=== PATIENT | female | born 1990 | race Hispanic/Latino ===

== ENCOUNTER 2023-01-19 03:10 | Day surgery (SDC) | payer BC, SELFPAY ==
[2023-01-18 08:39] VITALS: BMI 40.7
--- NOTE | 2023-01-18 08:44 | PC.NURSE ---
Report to the Outpatient Waiting Room, entrance under the green pavilion located off [facility], at time 1300 on date 01/19/23. Planned Procedure Time: 1500. Time changes happen often and if your time is changed the preop area will call you the afternoon before. - You and your visitor will be asked to self-screen and do not enter if you have any COVID symptoms. - A mask is optional within the hospital at this time. Patients may have clear liquids (water, carbonated beverages, clear teas, apple juice) until 3 hours prior to surgery with a maximum of 20 ounces. - No food from midnight until time of surgery Take the following medications with a SIP of water the morning of surgery: CIPRO, PAIN PILL IF NEEDED DO NOT STOP ANY OF YOUR OTHER PRESCRIPTION MEDICATIONS PRIOR TO SURGERY ?EXCEPT THE FOLLOWING Medications to discontinue per physician: VITAMINS/SUPPLEMENTS Date to take last dose: NONE UNTIL AFTER SURGERY Please no make-up, nail setswana, hairspray, perfume, deodorant, or body powder the day of surgery. No jewelry (including any body piercings) or valuables the day of surgery, leave them at home. Please take a shower or bath the night before, or the morning of, surgery with an antibacterial soap. Wear comfortable, loose fitting clothing. - Jewelry must be removed prior to entering the operating room. Rings and piercings that are not removed may be cut off. - The hospital will not accept responsibility for valuables. - Please leave all valuables, including medications, at home the day of surgery. If you are going home after surgery, a licensed coach tour driver must drive you home. - NO public transportation without another adult if you receive anesthesia. - We recommend that an adult stay with you for 24 hours following discharge. - We also recommend that you do not drive, make important decision, drink alcoholic beverages, or take any drugs that were not prescribed by your health care provider for at least 24 hours after your discharge time. Follow any additional instructions given to you from your surgeon. If you or anyone in your household have experienced Covid symptoms in the past week, please notify your surgeon or the nurse liaison at the phone number below for possible testing. Telephone instructions given to PT - STEFANIE JOE and asked if any additional questions and then verbalized understanding. Patient advised to call surgeon office or pre surgery nurse liaison [phone] if any additional questions.
[2023-01-19] VITALS (8 sets, daily range): BP systolic 97–152; BP diastolic 52–85; PULSE 66–109; RESP 11–20; TEMP 36.1–37.2; O2SAT 97–100; BMI 40.4
--- NOTE | ~2023-01-19 | XR_ITS ---
EXAMINATION: XR abdomen/kub 1V DATE: 01/19/2023 14:16 INDICATION: Kidney stone. TECHNIQUE: A supine view of the abdomen on 2 radiographs was obtained. COMPARISON: None. FINDINGS: There are no dilated loops of bowel. The kidneys are obscured by bowel. There is a 10 mm ca lcification in the area of proximal right ureter. There are multiple densities overlying left kidney measuring up to 4 mm. IMPRESSION: 1. 10 mm calcification in the area of proximal right ureter that may be a stone. 2. Multiple densities overlying left kidney measuring up to 4 mm that may be stones. Reviewed, dictated and finalized at location A. IMPRESSION: 1. 10 mm calcification in the area of proximal right ureter that may be a stone . 2. Multiple densities overlying left kidney measuring up to [address] ones.
--- NOTE | 2023-01-19 07:00 | WPDHPUPDATE1 ---
History and Physical Update Update Date/Time: 01/19/23 07:00 History and Physical has been reviewed, including an updated exam of the patient. There are NO changes in the patient's condition. Risks, benefits, and alternatives have been discussed and questions answered. Patient agrees to proceed with procedure.
[2023-01-19] MEDS: LACTATED RINGERS 1,000 ML 30 ML IV CONT (13:35)
[2023-01-19 13:45] LABS: Appearance Urine Clear (Clear); Bacteria Urine None Seen /hpf; Bilirubin Urine Negative (Negative); Color Urine Yellow (Yellow); Glucose Urine UA Negative (Negative); Ketones Urine 2+ mg/dL (Negative); Leukocyte Esterase Ur Negative LEU/UL (Negative); Nitrate Urine Negative (Negative); Non Pathogenic Casts 0-2; Protein Urine Negative (Negative); RBC Urine 0-2 /hpf (0-2); Specific Grav Ur 1.012 (1.001-1.035); Squamous Epithelial Cell Urine None seen /hpf (Few); WBC Urine 0-5 /hpf
[2023-01-19 14:11] LABS: Add Urine Microscopic? YES
[2023-01-19 14:18] LABS: INR 1.1; Prothrombin Time 14.4 Seconds (11.1-14.7)
[2023-01-19 14:19] LABS: Partial Thromboplastin Time 33.9 SECONDS (22.3-36.8)
--- NOTE | 2023-01-19 14:23 | WPDANESEPPF ---
Anes - Initial Pre Proc Eval Procedure: Operation Date: 01/19/23 15:00 Proposed Procedures p Right Ureteral Extracorporeal Shock Wave Lithotripsy - Deep Steward MD Date/Time: 01/19/23 14:23 Surgeon: Deep Steward MD Pre Op Diagnosis: right ureteral stone Patient Data Age: 32 Gender: F Height: 1.7 m Weight: 117.95 kg Allergies Allergy/AdvReac Type Severity Reaction Status Date / Time phenytoin [From Dilantin] AdvReac Unknown Seizure Verified 01/18/23 08:37 metformin AdvReac Diarrhea Verified 01/18/23 08:37 Home Medications Medication Instructions Recorded Confirmed Type ascorbic acid (vitamin C) 100 mg 100 mg PO DAILY 07/24/22 01/18/23 History tablet cholecalciferol (vitamin D3) 125 125 mcg PO DAILY #30 caps 07/24/22 01/18/23 Rx mcg (5,000 unit) capsule ergocalciferol (vitamin D2) 1,250 1,250 mcg PO WEEKLY 3 months #13 07/24/22 01/18/23 Rx mcg (50,000 unit) capsule caps spironolactone 50 mg tablet 50 mg PO DAILY #30 tabs 07/24/22 01/18/23 Rx ciprofloxacin HCl 500 mg tablet 500 mg PO Q12H #14 tabs 01/15/23 01/18/23 Rx (Cipro) hydrocodone 5 mg-acetaminophen 325 1 tablet PO Q6H PRN pain #20 tabs 01/15/23 01/18/23 Rx mg tablet ondansetron 4 mg disintegrating 4 mg PO Q8H PRN nausea and 01/15/23 01/18/23 Rx tablet vomiting #14 tabs tamsulosin 0.4 mg capsule (Flomax) 0.4 mg PO DAILY #10 caps 01/15/23 01/18/23 Rx Laboratory Tests 01/19/23 01/19/23 13:30 13:56 PT 14.4 Seconds (11.1-14.7) INR 1.1 APTT 33.9 SECONDS (22.3-36.8) Urine Color Yellow (Yellow) Urine Appearance Clear (Clear) Urine pH 6.0 (5.0-9.0) Ur Specific [place] 1.012 (1.001-1.035) Urine Protein Negative mg/dL (Negative) Urine Glucose (UA) Negative mg/dL (Negative) Urine Ketones 2+ H mg/dL (Negative) Ur Blood (Man) Non-hemolyzed trace (Negative) Urine Nitrate Negative (Negative) Urine Bilirubin Negative (Negative) Urine Urobilinogen 1.0 mg/dL (<2.0) Leukocyte Esterase Rfl Negative MATTHEW/UL (Negative) Urine RBC 0-2 /hpf (0-2) Urine WBC 0-5 /hpf Ur Squamous Epith Cells None seen /hpf (Few) Urine Bacteria None seen /hpf Urine Casts 0-2 Patient hx anesthesia problems: none Family hx anesthesia problems: none Results Review: All pre-operative results and documents have been reviewed as part of the pre-operative evaluation. [facility] Past Medical History Medical History Brain tumor (benign) Dairy product intolerance Insulin resistance Low HDL (under 40) Seizures teenager Transaminitis Vitamin D deficiency Surgical History Surgical History Hx of brain surgery Family History Family History Father Hypertension Anxiety Mother Thyroid disease Social History Social History Smoking status: Never smoker Alcohol intake: never Substance use: never Substance use type: does not use Lack of Transportation: No Lack of Food: Never True Current Housing: I Have Housing Concerned About Future Housing: No Difficulty Paying Gas/Electric Bills: No Difficulty Paying for Meds: No Currently Unemployed: No Difficulty w/ Childcare or Family Care: No Living arrangements: with family Occupation/Education: occupation Gender identity (if verbalized by the patient): Female Spiritual care concerns: No Anes - Eval Final PreProcedure Day of Procedure 01/19/23 14:23 Patient weight: morbidly obese Heart: regular rate and rhythm Lungs: clear to auscultation Airway: Mallampati scale class II Neurological: alert and oriented Last oral intake: >/= 8 hours ASA classification: III Emergent: no
[2023-01-19] MEDS: ceFAZolin 2 GM/D5W 50 ML 2 GM/50 ML BAG IVPB (14:28)
--- NOTE | 2023-01-19 14:30 | W.PM.PROC2 ---
Procedure Note - Detailed Date of Procedure 01/19/23 Pre-op Diagnosis Right ureteral stone Post-op Diagnosis Same Procedure Performed Right ESWL Surgeon Deep Steward MD Anesthesia General Description of Procedure The patient was brought to the operative suite where he was placed in the supine position on the Dornier lithotripsy table. The focal point of the lithotripter was placed at a 9mm right proximal ureteral calculus. A total of 3000 shocks were delivered at a power setting of 2-6. There appeared to be good fragmentation of the stone. The patient tolerated the procedure well and was taken to the recovery room in good condition. Drains No Packing No Pathology None sent Complications No immediate complications Condition Stable Disposition PACU
[2023-01-19] MEDS: KETOROLAC 30 MG/ML VIAL (*BKC) IV PUSH (15:34)
== END 2023-01-19 17:10 | disposition home or self-care (01) ==
PROVIDERS: PCP Physician Assistant Medical; Visit Provider Urology
PROC: (CPT 50590; principal; 2023-01-19 15:00)
DX: N20.1 Calculus of ureter (principal); E55.9 Vitamin D deficiency, unspecified; E66.01 Morbid (severe) obesity due to excess calories; Z68.41 Body mass index [BMI] 40.0-44.9, adult
CPT/HCPCS: 50590; 36415; 74018; 81001; 85610; 85730; J0690; J1100; J1885; J2250; J2405; J2704; J7120